=== PATIENT | male | born 1985 | race American Indian/Alaskan Native ===

== ENCOUNTER 2019-01-02 00:41 | Emergency (ER) | payer SELFPAY ==
[2019-01-02] MEDS ORDERED: Ketorolac 60 MG/2 ML SDV IM ONE (01:26)
--- NOTE | 2019-01-02 01:45 | EDM.PDOC ---
<Edi Saenz - Last Filed: 01/02/19 01:29> ED HPI GENERAL MEDICAL PROBLEM - General Chief Complaint: Back Pain or Injury Stated Complaint: BACK PAIN Time Seen by Provider: 01/02/19 01:02 - History of Present Illness INITIAL COMMENTS - FREE TEXT/NARRATIVE: History of Present Illness: Chepe is a 33 year old male who presents emergency department for the evaluation of lower back pain. 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 The patient reports he has been treating his lower back pain with Ibuprofen which has been moderately effective his last dose was at 1pm. The patient denies bowel or bladder dysfunction or recent falls or trauma. Review of systems: As per history of present illness and below otherwise all systems reviewed and negative. Past medical History: As per history of present illness and as reviewed below otherwise noncontributory. Surgical History: As per history of present illness and as reviewed below otherwise noncontributory. Family history: No reported history of drug or alcohol abuse. Physical Exam: General: Well- developed well- nourished overweight male who is non toxic appearing. HEENT: Atraumatic, normocephalic, pupils reactive, negative for conjunctival pallor or scleral icterus, mucous membranes moist, throat clear with no exudates , uvula is midline, neck supple, nontender, trachea midline. No cervical adenopathy or nuchal rigidity. Lungs: Clear to auscultation, breath sounds equal bilaterally, chest nontender. Heart: S1S2, regular rate and rhythm, no overt murmurs. Abdomen: Soft, nondistended, nontender. Negative for masses or hepatosplenomegaly. Normal abdominal bowel sounds. Pelvis: Deferred Genitourinary: Deferred Rectal: Deferred Extremities: Atraumatic, full range of motion without defects or deficits. Neurovascular unremarkable. Neuro: Awake, alert, Cranial nerves II through XII unremarkable. Cerebellum unremarkable. Motor and sensory unremarkable throughout. Exam nonfocal. Skin: Normal turgor no overt rash or lesions. Back: Decreased ROM of extension and flexion of his back. To palpation- no bony step off appreciated. Mild tenderness to palpation of the lumbar spine. + straight leg test. Diagnostics: None Therapeutics: Toradol Impression: Lumbar Strain Plan: The patient will be given a prescription for Diclofenac and Norflex. He is utilize warm packs to his lower back and make slow movements. He is to establish care with PCP and follow up if his back pain becomes persistent. He is to return to the ED as needed and as discussed. low back Pain Score (Numeric/FACES): 10 - Related Data Allergies Allergy/AdvReac Type Severity Reaction Status Date / Time No Known Allergies Allergy Verified 01/02/19 00:48 Home Meds: Home Meds Diclofenac Sodium [Voltaren] 75 mg PO BID PRN #14 tab.ec 01/02/19 [Rx] Orphenadrine [Norflex] 100 mg PO BID PRN #14 tab 01/02/19 [Rx] Past Medical History - Past Health History Medical/Surgical History: Denies Medical/Surgical History Social & Family History - Family History Family Medical History: Noncontributory - Tobacco Use Smoking Status *Q: Never Smoker - Recreational Drug Use Recreational Drug Use: No Course - Vital Signs Last Recorded V/S: Last Vital Signs Temp 36.6 C 01/02/19 00:50 Pulse 77 01/02/19 00:50 Resp 18 01/02/19 00:50 BP 135/94 H 01/02/19 00:50 Pulse Ox 96 01/02/19 00:50 - Orders/Labs/Meds Meds: Medications Discontinued Medications Generic Name Dose Route Start Last Admin Trade Name Rebecca PRN Reason Stop Dose Admin Ketorolac Tromethamine 60 mg 01/02/19 01:26 Toradol IM 01/02/19 01:27 ONETIME ONE Departure - Departure Disposition: Home, Self-Care 01 Clinical Impression: Lumbar back pain - Discharge Information Prescriptions: Diclofenac Sodium [Voltaren] 75 mg PO BID PRN #14 tab.ec PRN Reason: Pain (Mild 1-3) Orphenadrine [Norflex] 100 mg PO BID PRN #14 tab PRN Reason: Muscle Spasm Instructions: Low Back Sprain Referrals: PCP,None [Primary Care Provider] - Forms: ED Department Discharge Additional Instructions: The following information is given to patients seen in the emergency department who are being discharged to home. This information is to outline your options for follow-up care. We provide all patients seen in our emergency department with a follow-up referral. The need for follow-up, as well as the timing and circumstances, are variable depending upon the specifics of your emergency department visit. If you don't have a primary care physician on staff, we will provide you with a referral. We always advise you to contact your personal physician following an emergency department visit to inform them of the circumstance of the visit and for follow-up with them and/or the need for any referrals to a consulting specialist. The emergency department will also refer you to a specialist when appropriate. This referral assures that you have the opportunity for followup care with a specialist. All of these measure are taken in an effort to provide you with optimal care, which includes your followup. Under all circumstances we always encourage you to contact your private physician who remains a resource for coordinating your care. When calling for followup care, please make the office aware that this follow-up is from your recent emergency room visit. If for any reason you are refused follow-up, please contact the [facility] emergency department at and ask to speak to the emergency department charge nurse. [facility]- [facility] [place] [address] Use heat or ice to area as you choose for comfort and please take medications that you have been prescribed. Only take the Norflex when you're at home as it may make you drowsy or sleepy and you should not be driving a car or going to work with that medication. Please call and schedule follow-up appointment with your provider or one of ours in the clinic for reevaluation and further care as was discussed. Do all activities slowly even getting out of chairs out of the car and any movements as this will prevent reinjury. Return to ER as needed and as discussed <America Avelar - Last Filed: 01/02/19 01:47> ED HPI GENERAL MEDICAL PROBLEM - History of Present Illness INITIAL COMMENTS - FREE TEXT/NARRATIVE: This is Dr. Avelar dictating an addendum note. I agree with history of physical as above and in light of the fact that the patient doesn't have any bowel or bladder disturbances radiation of the pain or neurosensory changes/ weakness and his pain is only been ongoing for the last 2 days and he has not adequately used [id number] meds we will not perform imaging at this time. There was no history of any trauma and the patient is aware that we are unable to do MRI nor is he a candidate for an emergent MRI this evening. The patient drove himself here to the ED so we will only give Toradol and he does not want Insty Meds and would like his meds sent to his pharmacy of choice. Norflex and Voltaren was sent to his pharmacy to vegetable picker in the morning. ED ROS GENERAL - Review of Systems Review Of Systems: ROS reveals no pertinent complaints other than HPI. ED EXAM,LOWER BACK PAIN/INJURY - Physical Exam Exam: See Below (see dictation) Departure - Departure Time of Disposition: 01:47 Condition: Good
== END 2019-01-02 01:58 | disposition home or self-care (01) ==
LOC: MW.ED 00:41
DX: S39.012A Strain of muscle, fascia and tendon of lower back, initial encounter (principal); Z79.1 Long term (current) use of non-steroidal anti-inflammatories (NSAID); X58.XXXA Exposure to other specified factors, initial encounter
CPT/HCPCS: 96372; 99283; J1885; 99282